=== PATIENT | male | born 1985 | race Caucasian/White ===

== ENCOUNTER 2018-05-25 08:23 | Outpatient (CLI) | payer OTHER ==
--- NOTE | 2018-05-25 10:44 | ULT ---
ABDOMINAL ULTRASOUND: 05/25/2018 HISTORY: Hepatitis C. FINDINGS: The liver demonstrates a normal sonographic appearance. No hepatic mass is visualized on the provide d sonographic images. The limited visualized portions of the pancreas, the visualized portions of the IVC, the abdominal ao rta, and the bilateral kidneys demonstrate a normal sonographic appearance. The right kidney measure s 12.1 cm in length, with the left kidney measuring 12.3 cm in length. The spleen is enlarged in craniocaudal dimensions, measuring 14.7 cm. There are linear areas of increased echogenicity within the gallbladder lumen, most likely attributab le to gallbladder sludge. No gallbladder calculus is seen. There is no gallbladder wall thickening or pericholecystic fluid. The common duct is normal in caliber, measuring 0.4 cm in diameter. IMPRESSION: 1. Mild splenomegaly. 2. Gallbladder sludge. No gallbladder calculi are seen, and the common duct is normal in caliber. POS: [facility]
== END 2018-05-25 08:24 | disposition home or self-care (01) ==
LOC: SCSULT 08:23
PROVIDERS: ATTEND Family Medicine
DX: B18.2 Chronic viral hepatitis C (principal); R16.1 Splenomegaly, not elsewhere classified; K82.8 Other specified diseases of gallbladder
CPT/HCPCS: 76700

== ENCOUNTER 2021-06-17 00:14 | Emergency (ER) | payer OTHER, SELFPAY ==
[2021-06-17] MEDS ORDERED: Haloperidol Lactate 5 MG/ML VIAL ONE (00:34)
[2021-06-17] MEDS ORDERED: Lorazepam 2 MG/ML VIAL ONE (00:42)
[2021-06-17 00:43] LABS: #Basophils 0.1 thou/uL (0.0-0.2); #Eosinphils 0.1 thou/uL (0.0-0.7); #Lymphocytes 2.6 thou/uL (1.20-3.40); #Monocytes 0.9 thou/uL (0.11-0.59); #Neutrophils 3.7 thou/uL (1.40-6.50); %Basophils 1.2 % (0.0-1.0); %Lymphocytes 35.1 % (21.0-51.0); %Monocytes 11.6 % (0.0-10.0); %Neutrophils 50.2 % (42.0-75.0); Hemoglobin 15.7 g/dL (14.0-18.0); Mean Corpuscular HGB CONC 33.4 g/dL (32.0-36.0); Mean Corpuscular Hemoglobin 30.7 pg (27.0-31.0); Mean Platelet Volume 7.5 fL (7.4-10.4); Platelet Count 252 thou/uL (130-400); Red Blood Cell (RBC) Count 5.12 mill/uL (4.70-6.10); White Blood Cell (WBC) Count 7.3 thou/uL (4.8-10.8)
[2021-06-17 01:04] LABS: ALT (SGPT) 72 U/L (8-55); AST (SGOT) 53 U/L (5-34); Albumin 4.7 g/dL (3.5-5.0); Alkaline Phosphatase 78 U/L (40-110); Anion Gap 16 mmol/L (10-20); BUN (Urea Nitrogen) 21 mg/dL (8.9-20.6); Bilirubin, Total 0.5 mg/dL (0.2-1.2); Calc. Creatinine Clearance 0 mL/min (70-130); Carbon Dioxide 27 mmol/L (22-29); Chloride 101 mmol/L (98-107); Globulin 3.5 g/dL (2.4-3.5); Glucose 116 mg/dL (70-105); Protein, Total 8.2 g/dL (6.0-8.3); Sodium 140 mmol/L (136-145)
[2021-06-17 01:05] LABS: Acetaminophen Less than 6.0 mcg/mL (10.0-30.0); Alcohol Less than 10 mg/dL (Less than 10); Lipase 91 U/L (8-78); Salicylate Less than 8.0 mg/dL (15.0-30.0)
[2021-06-17 02:38] LABS: Bacteria/HPF None Seen HPF (None Seen); Bilirubin Negative (Negative); Blood, Urine Negative (Negative); Clarity Clear (Clear); Glucose, Urine (Dipstick) Normal (Negative); Ketone, Urine Negative (Negative); Leukocyte Negative Leu/uL (Negative); Nitrite Negative (Negative); Protein, Urine (Dipstick) 30 mg/dL (Neg-Trace); Renal Epithelial 0-3 HPF (None Seen); Specific Gravity, Urine 1.034 (1.002-1.036); Squamous Epithelial None Seen HPF (0-3); WBC/HPF None Seen HPF (0-3); pH, Urine 6.5 (5.0-9.0)
[2021-06-17 02:40] LABS: RBC/HPF 0-3 HPF (0-3); Sperm/HPF 3+ HPF (None Seen)
[2021-06-17 02:41] LABS: Amphetamine Detected (NotDetected); Barbiturates Screen Not Detected (NotDetected); Benzodiazepine Screen Not Detected (NotDetected); Cocaine Metabolite Screen Not Detected (NotDetected); Methadone Not Detected (NotDetected); Methamphetamine Detected (NotDetected); Opiate Screen Not Detected (NotDetected); Oxycodone Screen Not Detected (NotDetected); Phencyclidine (PCP) Not Detected (NotDetected); THC/Cannabinoid Screen Detected (NotDetected); Tricyclic Screen Not Detected (NotDetected)
== END 2021-06-17 03:46 | disposition home or self-care (01) ==
LOC: ERS 00:14
DX: F15.129 Other stimulant abuse with intoxication, unspecified (principal); R10.9 Unspecified abdominal pain; K21.9 Gastro-esophageal reflux disease without esophagitis; F17.210 Nicotine dependence, cigarettes, uncomplicated
CPT/HCPCS: 80053; 80306; 80307; 81003; 81015; 83690; 85025; 93005; 96374; 96375; J1630; J2060